=== PATIENT | female | born 1965 | race Caucasian/White ===

== ENCOUNTER 2022-04-03 08:30 | Inpatient (IN) | payer BC ==
[2022-04-04 13:43] VITALS: BMI 21.4
[2022-04-08] MEDS ORDERED: Famotidine/PF 20 mg/2ml Vial ONE (06:15)
[2022-04-08] MEDS ORDERED: fentaNYL Citrate/PF 100 MCG/2 ML SYRINGE ONE (06:15)
[2022-04-08] MEDS ORDERED: SUGAMMADEX SODIUM 200 MG/2 ML VIAL ONE (06:15)
[2022-04-08] MEDS ORDERED: Lidocaine 1% w/Epinephrine 1:100K 20 ML VIAL ONE (06:39)
[2022-04-08] MEDS ORDERED: Bupivacaine PF 0.5% 30 ML VIAL ONE (06:39)
[2022-04-08] MEDS ORDERED: Sodium Chloride 0.9% 100 ML ONE (07:17)
[2022-04-08] MEDS ORDERED: cefOXitin 2 GM VIAL ONE ×2 (07:17→11:03)
[2022-04-08] MEDS ORDERED: Phenylephrine 10 MG/ML VIAL ONE (07:24)
[2022-04-08] MEDS ORDERED: Lidocaine 1% PF 5 ML VIAL ONE (07:24)
[2022-04-08] MEDS ORDERED: Ketorolac Tromethamine 30 MG/ML VIAL ONE ×2 (07:24→18:33)
[2022-04-08] MEDS ORDERED: Rocuronium Bromide 10 MG/ML (10ML VIAL) ONE (07:24)
[2022-04-08] MEDS ORDERED: ePHEDrine 50 MG/ML VIAL ONE (07:24)
[2022-04-08] MEDS ORDERED: Dexamethasone 20 MG/5 ML VIAL ONE ×2 (07:24)
[2022-04-08] MEDS ORDERED: Metoclopramide HCl 10 MG/2 ML VIAL ONE (07:24)
[2022-04-08] MEDS ORDERED: PROPOFOL 200 MG/20 ML VIAL ONE (07:24)
[2022-04-08] MEDS ORDERED: Morphine 4 MG/ML VIAL SLOW IVP PRN (08:02)
[2022-04-08] MEDS ORDERED: Promethazine HCl 25 MG/ML VIAL IM PRN ×2 (08:02→14:15)
[2022-04-08] MEDS ORDERED: Ondansetron PF 4 MG/2 ML Vial IVP PRN (08:02)
[2022-04-08] MEDS ORDERED: hydrALAZINE 20 MG/ML VIAL SLOW IVP PRN (08:02)
[2022-04-08] MEDS ORDERED: Promethazine HCl 25 MG/ML VIAL IVPB PRN (14:15)
[2022-04-08] MEDS ORDERED: Promethazine HCl 12.5 MG in Sodium Chloride 0.9% 50 ML IVPB PRN (14:35)
[2022-04-08] MEDS: Ketorolac Tromethamine 30 MG/ML VIAL IVP SCH ×2 (18:35→20:12)
[2022-04-08] MEDS: Famotidine 20 MG TAB PO SCH (20:11)
[2022-04-08] MEDS: D5 1/2 NS w/20 mEq KCL 1,000 ML IV SCH ×2 (20:11→20:42)
[2022-04-08] MEDS: Famotidine/PF 20 mg/2ml Vial SLOW IVP SCH ×2 (20:12→20:42)
[2022-04-08] MEDS: Enoxaparin Sodium 40 MG/0.4 ML SYRINGE SC SCH (20:42)
[2022-04-09] MEDS: Famotidine 20 MG TAB PO SCH ×3 (00:41→20:53)
[2022-04-09] MEDS: Ketorolac Tromethamine 30 MG/ML VIAL IVP SCH ×4 (00:57→18:12)
[2022-04-09 05:24] LABS: #Basophils 0.1 thou/uL (0.0-0.2); #Lymphocytes 1.1 thou/uL (1.20-3.40); #Monocytes 0.6 thou/uL (0.11-0.59); %Basophils 0.7 % (0.0-1.0); %Eosinophils 0.1 % (0.0-10.0); %Lymphocytes 8.3 % (21.0-51.0); %Monocytes 4.9 % (0.0-10.0); %Neutrophils 86.1 % (42.0-75.0); Hemoglobin 10.9 g/dL (12.0-16.0); Mean Corpuscular HGB CONC 31.4 g/dL (32.0-36.0); Mean Corpuscular Hemoglobin 29.6 pg (27.0-31.0); Mean Corpuscular Volume 94.1 fL (78.0-98.0); Mean Platelet Volume 7.7 fL (7.4-10.4); Platelet Count 140 thou/uL (130-400); White Blood Cell (WBC) Count 12.8 thou/uL (4.8-10.8)
[2022-04-09] MEDS: D5 1/2 NS w/20 mEq KCL 1,000 ML IV SCH ×2 (05:29→16:49)
[2022-04-09 05:46] LABS: Anion Gap 15 mmol/L (10-20); BUN (Urea Nitrogen) 13 mg/dL (9.8-20.1); Calc. Creatinine Clearance 69 mL/min (70-130); Calcium 8.3 mg/dL (7.8-10.44); Carbon Dioxide 22 mmol/L (22-29); Chloride 106 mmol/L (98-107); Estimated GFR 84; Glucose 123 mg/dL (70-105); Potassium 3.7 mmol/L (3.5-5.1); Sodium 139 mmol/L (136-145)
[2022-04-09] MEDS ORDERED: HYDROcodone/Acetaminophen 7.5/325 mg Tablet PO PRN (08:03)
[2022-04-09] MEDS: Famotidine/PF 20 mg/2ml Vial SLOW IVP SCH ×2 (08:48→20:54)
[2022-04-09] MEDS: Enoxaparin Sodium 40 MG/0.4 ML SYRINGE SC SCH (20:53)
[2022-04-10] MEDS: Ketorolac Tromethamine 30 MG/ML VIAL IVP SCH ×2 (00:48→06:28)
[2022-04-10] MEDS: D5 1/2 NS w/20 mEq KCL 1,000 ML IV SCH ×2 (04:29→10:15)
[2022-04-10 06:16] VITALS: TEMP 98.4
[2022-04-10 08:28] VITALS: BP 119/72
[2022-04-10] MEDS: Famotidine/PF 20 mg/2ml Vial SLOW IVP SCH (08:44)
[2022-04-10] MEDS: Famotidine 20 MG TAB PO SCH (08:45)
== END 2022-04-10 12:30 | disposition home or self-care (01) | DRG 330 ==
LOC: SURG A 04-08 05:44 → EDSTATUS 04-08 08:30 → SURG B 04-08 19:19
PROVIDERS: ADMIT Surgery; ATTEND Surgery
PROC: 0DBN0ZZ Excision of Sigmoid Colon, Open Approach (ICD-10-PCS; principal; 2022-04-08)
PROC: 0WQF0ZZ Repair Abdominal Wall, Open Approach (ICD-10-PCS; 2022-04-08)
PROC: 8E0W0CZ Robotic Assisted Procedure of Trunk Region, Open Approach (ICD-10-PCS; 2022-04-08)
DX: Z43.3 Encounter for attention to colostomy (principal); C18.7 Malignant neoplasm of sigmoid colon; K43.2 Incisional hernia without obstruction or gangrene; Z20.822 Contact with and (suspected) exposure to COVID-19; Z88.8 Allergy status to other drugs, medicaments and biological substances
CPT/HCPCS: 36415; 36416; 80048; 85025; 88305; C1776; J0694; J1100; J1650; J1885; J2370; J2704; J2765; J3480; J3490; S0020; S0028

== ENCOUNTER 2022-04-03 08:55 | Outpatient (CLI) | payer BC, OTHER ==
[2022-04-03 14:11] LABS: Hemoglobin A1c 5.8 % (4.0-6.0)
== END 2022-04-03 08:56 | disposition home or self-care (01) ==
LOC: LABBT 08:55
PROVIDERS: ATTEND Surgery
DX: Z01.812 Encounter for preprocedural laboratory examination (principal); C18.7 Malignant neoplasm of sigmoid colon; Z98.890 Other specified postprocedural states; Z20.822 Contact with and (suspected) exposure to COVID-19
CPT/HCPCS: 83036; 87811